=== PATIENT | male | born 1950 | race Caucasian/White ===

== ENCOUNTER 2017-08-05 21:52 | Inpatient (IN) | payer OTHER ==
[~2017-08-05] VITALS: Ht 170.2 cm; Wt 91.7 kg
[~2017-08-05 21:52] MED LIST: COLACE100 MG PO; IRON325 M1 PO; LO-DOSE ASPIRIN81 M2 PO; VOLTAREN-XR100 MG PO; ZESTORETIC 10-1 EAC1 PO; ZOCOR40 MG PO
[2017-08-06 08:10] VITALS: BP 124/74
[2017-08-06 13:59] VITALS: BP 102/54
[2017-08-06 15:45] VITALS: BP 105/55
[2017-08-06 18:30] VITALS: BP 105/53
[2017-08-06 20:43] VITALS: BP 115/57
[2017-08-07] VITALS (7 sets, daily range): BP systolic 102–132; BP diastolic 50–61
[2017-08-07 05:38] LABS: HEMATOCRIT 33.6 % (38.0-50.0); MCV 90.6 FL (86-99)
[2017-08-08 04:12] VITALS: BP 115/55
[2017-08-08 05:16] LABS: HEMATOCRIT 30.8 % (38.0-50.0); MCV 89.8 FL (86-99)
[2017-08-08 08:00] VITALS: BP 118/59
[2017-08-08] MEDS ORDERED: OXYCODONE HCL5 MG PO (09:46)
[2017-08-08] MEDS ORDERED: CELECOXIB200 MG PO (09:46)
[2017-08-08] MEDS ORDERED: ELIQUIS2.5 MG PO (09:46)
[2017-08-08 12:00] VITALS: BP 130/66
[2017-08-08 12:43] VITALS: BP 130/66
== END 2017-08-08 12:29 | DRG 470 ==
LOC: ENRESERV 21:52 → 2SOUTH 08-06 07:47 → 3WEST 08-06 13:05 → 2SOUTH 08-06 14:48 → 3WEST 08-08 12:29
PROVIDERS: Orthopaedic Surgery
PROC: 0SRC0J9 Replacement of Right Knee Joint with Synthetic Substitute, Cemented, Open Approach (ICD-10-PCS; principal; 2017-08-06)
DX: M17.11 Unilateral primary osteoarthritis, right knee (principal); I10 Essential (primary) hypertension; E78.5 Hyperlipidemia, unspecified; E66.3 Overweight; Z68.31 Body mass index [BMI] 31.0-31.9, adult; Z79.82 Long term (current) use of aspirin
CPT/HCPCS: 85014; 85018; 94799; 97530 GP; C1713; J0131; J0330; J0461; J0690; J1100; J1170; J1885; J2250; J2405; J2795; J3010; J7050; J7120